=== PATIENT | male | born 1945 | race Caucasian/White ===

== ENCOUNTER 2017-02-26 20:22 | Inpatient (IN) | payer OTHER ==
--- NOTE | ~2017-02-26 | CO ---
Unit #: [id number] #: [id number] Patient: REYNOLD MCMILLAN [id number] [address] [place], [place] [address] [id number] I MR#: [id number] NAME: REYNOLD MCMILLAN. ROOM: 316 Age: 71 Sex: M Admission Date: 02/26/2017 : 1945 Attending Physician: Art Arechiga M.D. Primary Care Physician: Juan Rosario M.D. CONSULTATION REPORT REASON FOR CONSULTATION Renal failure. HISTORY OF PRESENT ILLNESS The patient is a 71-year-old male with significant past medical history of chronic kidney disease and was seen by Dr. Trejo in his office a few years back. Then, he came back to see him again, but somehow the patient was seen in the hospital by another group recently. The patient denies any other complaint at this time. The patient came to the hospital with the complaint of not feeling well and with very high blood pressure and also had seizures. The patient is a prison resident. The patient denies any chest pain. Although, he was on all of his antiseizure medicine. He was on low-dose IV fluids since yesterday and creatinine that was 5.6 at the last month, found to be 6.2 at the time of admission, now improved to 5.7, but sodium was 150 today. The patient is on normal saline at 75 mL an hour. His urine studies were unremarkable, but urinalysis done did show that the patient has significant proteinuria. As per record, the patient also has history of dementia, but when I saw the patient, he was pretty alert and oriented. PAST MEDICAL HISTORY Significant for CVA, epilepsy, hypertension, arthritis, peripheral vascular disease, diabetes mellitus, chronic kidney disease stage 4, at least, and history of sleep apnea. PAST SURGICAL HISTORY Significant for carotid endarterectomy, knee replacement, and inguinal hernia repair. SOCIAL HISTORY The patient is . Currently at the prison. FAMILY HISTORY Significant for coronary artery disease and pulmonary emboli. MEDICATIONS [facility] medicine was reviewed that included omeprazole, MiraLax, simvastatin, isosorbide dinitrate, Keppra, Lexapro, Catapres, acetaminophen, iron supplement. REVIEW OF SYSTEMS Already explained in the history of present illness. All other review of systems is unremarkable. Unit #: [id number] #: [id number] Patient: REYNOLD MCMILLAN PHYSICAL EXAMINATION GENERAL: The patient is an elderly male, not in any acute distress. VITAL SIGNS: Last blood pressure is 160/100, pulse is 85, temperature 98, and respiratory rate is 18. HEAD AND NECK: Pupils are reactive to light. Extraocular movements intact. Mucous membranes are moist. NECK: Supple. No JVD. HEART: Regular rate and rhythm. No murmur. No gallop. CHEST: The patient has bilateral air entry. ABDOMEN: Soft and nontender. No hepatosplenomegaly. EXTREMITIES: Mild edema. Otherwise unremarkable. DIAGNOSTIC STUDIES LABORATORY RESULTS: Labs were reviewed. Sodium 150, potassium 4.5, chloride 113, bicarb 27, BUN 52, creatinine 5.7, calcium 8.5. Hemoglobin is 9.9 and hematocrit 29. ASSESSMENT 1. Acute kidney injury. The patient has significant chronic kidney disease. Creatinine was even 5.6 on 01/19/2017 and 2.2 back in 2013, so renal function is slowly worsening. There is a possibility of some underlying disease and extensive workup that was done in the past including serology, but the patient is diabetic, likely worsening of diabetic nephropathy at this time. Follow up with his renal ultrasound. 2. Chronic kidney disease, stage 3 to 4. 3. Accelerated hypertension. At this time, intravenous fluids will be started. We will control blood pressure aggressively and calcium channel yun will be the drug of choice. No GUTIERREZ or ARB because of the significant chronic kidney disease and we will watch the renal functions closely. 4. Diabetes mellitus type 2 with significant diabetic nephropathy likely. 5. History of seizures. 6. Cerebrovascular accident. PLAN 1. At this time, follow up with the urine studies. 2. Check renal ultrasound. 3. Serology, if the patient is not improving. 4. No need for IV fluid. 5. Control hypertension aggressively to decrease the progression of CKD. Thank you for letting me to participate. Dictated by... Arya Elias M.D. JONNA/cristino TD: 03/01/2017 03:34 JOB #: [id number] Unit #: [id number] #: [id number] Patient: REYNOLD MCMILLAN CONSULTATION REPORT Page 1 of 1 X Arya Elias MD REPORT
--- NOTE | ~2017-02-26 | CO ---
Unit #: [id number] #: [id number] Patient: REYNOLD MCMILLAN [id number] [facility] [address] [facility] [facility]. [place], [place] [address] [id number] I MR#: [id number] NAME: REYNOLD MCMILLAN ROOM: 316 Age: 71 Sex: M Admission Date: 02/26/2017 : 1945 Attending Physician: rAt Arechiga M.D. Primary Care Physician: Juan Rosario M.D. Consultation Date: 03/03/2017 CONSULTATION REPORT REASON FOR CONSULTATION Tunneled dialysis catheter placement. HISTORY OF PRESENT ILLNESS This is a 71-year-old male, currently admitted to the [facility] from a retirement with increasing confusion, mental status changes, and renal failure. This is a patient whom we have previously seen in 2010 as well as 2013 while he was hospitalized at [facility] and we had followed for right carotid stenosis. He has undergone right carotid endarterectomy and right carotid stenting at [facility] in the past. He now has worsening renal failure with elevated BUN, creatinine, and potassium levels. He is in need of hemodialysis and will first require hemodialysis access. He reports that he is right handed. He has no implantable pacemakers or MediPort in his chest. PAST MEDICAL HISTORY Includes; 1. Right carotid endarterectomy. 2. Right carotid stent. 3. Cerebrovascular accident. 4. Dementia. 5. Seizures. 6. Chronic kidney disease. 7. Diabetes. 8. Hypertension. SOCIAL HISTORY The patient resides in a retirement. He denies smoking, alcohol, or drug use. FAMILY HISTORY The patient reports no known family history with either his mother or father. ALLERGIES Zyrtec, Latex. MEDICATIONS Iron polysaccharide 150 mg p.o. daily, Aricept 10 mg two tablets daily, Isordil 30 mg three tablets b.i.d., Lipitor 10 mg daily, Senokot 8.6 mg daily, MiraLAX 17 g powder packet b.i.d., Protonix 40 mg p.o. daily, Lexapro 20 mg one tab daily, 81 mg aspirin daily, Namenda 5 mg b.i.d., Keppra 500 mg one tablet b.i.d., Depakote 250 mg one tablet b.i.d., Unit #: [id number] #: [id number] Patient: REYNOLD MCMILLANvasc 10 mg one tablet daily, chlorthalidone 25 mg daily, Tylenol 500 mg every 6 hours as needed, Catapres 0.1 mg q.4 hours, Apresoline 0.5 mL every 6 hours as needed. REVIEW OF SYSTEMS CONSTITUTIONAL: Negative. HEENT: Negative. RESPIRATORY: Negative. CARDIOVASCULAR: Negative. GASTROINTESTINAL: Positive for stool and urine incontinence. HEME/LYMPH: Negative. ENDOCRINE: Negative. MUSCULOSKELETAL: Negative. INTEGUMENTARY: Negative. NEUROLOGIC: Negative. PSYCHIATRIC: Depression. PHYSICAL EXAMINATION VITAL SIGNS: Temperature 97.5, heart rate 75, respirations 20, blood pressure 150/66. GENERAL APPEARANCE: This is an obese male, in no acute distress. He is a poor historian. Answers some questions appropriately, other times he does not respond. HEENT: Head is normocephalic. Pupils were equal, round, react to light/sluggish. NECK: Supple on auscultation. No bruits bilaterally. He has a well-healed right neck scar. CARDIAC: Regular rate and rhythm. No murmurs noted. LUNGS: Clear with diminished bilateral bases. He is on room air. ABDOMEN: Positive bowel sounds. Abdomen is soft, nontender. No distention noted. No palpable pulsatile masses felt on exam. VASCULAR: Palpable radial pulses bilaterally. Nonpalpable bilateral pedal pulses. SKIN: Warm and dry. He has cream and Kerlix wraps to his bilateral calves. While I did not robe him completely over onto his back, I did like to mention a signage in the room indicating that he has a pressure ulcer to his coccyx. He also has generalized bruising over his upper extremities. NEUROLOGIC: Cranial nerves II through XII grossly intact. He has generalized weakness. His left arm being weaker than the right arm from previous films. PSYCHIATRIC: The patient is oriented to person, place. DIAGNOSTIC STUDIES IMAGING STUDIES: None at this time. LABORATORY RESULTS: Sodium 140, potassium 5.3, chloride 103, CO2 25, BUN 57, creatinine 5.6, glucose 93. Hemoglobin 9.4, hematocrit 27.6, WBC 4.4, platelets 194. INR 1. ASSESSMENT AND PLAN End-stage renal disease with need for hemodialysis access. PLAN Plan will be for tunneled dialysis catheter placement tomorrow with Dr. Riojas. He will be n.p.o. past midnight. Consent will be obtained. Unit #: [id number] #: [id number] Patient: REYNOLD MCMILLAN Dictated by.Faisal Parsons APRN for Amanda Vazquez/cristino TD: 03/03/2017 16:58 JOB #: [id number] CONSULTATION REPORT Page 1 of 1 X X CONSULTATION REPORT
--- NOTE | ~2017-02-26 | EKG ---
PATIENT: REYNOLD MCMILLAN UNIT #: [id number] Ventricular Rate: 65 BPM Atrial Rate: 65 BPM P-R Interval: 146 ms QRS Duration: 86 ms Q-T Interval: 462 ms QTC Calculation(Bezet): 480 ms P Odell: 32 degrees Calculated T Odell: -32 degrees Diagnosis Line: Normal sinus rhythm Diagnosis Line: Nonspecific T wave abnormality Diagnosis Line: Prolonged QT Diagnosis Line: Abnormal ECG Diagnosis Line: When compared with ECG of 14-APR-2015 13:53, Diagnosis Line: Nonspecific T wave abnormality now evident in Diagnosis Line: Inferior leads Diagnosis Line: Nonspecific T wave abnormality now evident in Diagnosis Line: Anterolateral leads Diagnosis Line: Confirmed by GLENDA VELAZQUEZ MD ([id number]) on Diagnosis Line: 02/28/2017 4:54:58 PM INTERPRETING MD: BERNADETTE
--- NOTE | ~2017-02-26 | OR ---
Unit #: [id number] #: [id number] Patient: REYNOLD SHARMA [id number] [address] [place], [place] [address] [id number] I MR#: [id number] NAME: REYNOLD SHARMA ROOM: 316 Date of Procedure: 03/04/2017 Admission Date: 02/26/2017 Surgeon: Trevon Riojas M.D. : 1945 Attending Physician: Art Arechiga M.D. Primary Care Physician: Juan Rosario M.D. OPERATIVE REPORT PREOPERATIVE DIAGNOSIS Chronic kidney disease. POSTOPERATIVE DIAGNOSIS Chronic kidney disease. PROCEDURE PERFORMED Placement of right jugular tunneled dialysis catheter. ANESTHESIA 1% Xylocaine local with MAC. ESTIMATED BLOOD LOSS 10 mL. COMPLICATIONS None. INDICATIONS FOR PROCEDURE Mr. Reynold Sharma is a 71-year-old gentleman with acute on chronic renal failure, who will require hemodialysis. He was taken to the operating room urgently for placement of a tunneled catheter to facilitate his management. DESCRIPTION OF PROCEDURE The patient was placed in supine position. The table was placed in Trendelenburg position. His neck and chest were prepped and sterilely draped. The right internal jugular vein was interrogated with ultrasound and found to be patent. 1% Xylocaine was used to infiltrate the skin and subcutaneous tissue over the right jugular vein. The jugular vein was cannulated under direct ultrasound guidance and a J-wire was threaded through the cannulating needle. The wire was advanced under fluoroscopy into the right atrium. An 11-blade was used to enlarge the puncture site. Dilators were passed over the wire to enlarge the tract. An introducer sheath was placed over the wire. A 27 cm cuff to tip NeXTstep catheter was placed through the introducer sheath. The sheath was split and removed. The table was taken out of Trendelenburg position. The catheter was positioned, so that its tip was in the right atrium. Additional 1% Xylocaine was used to infiltrate the skin and subcutaneous tissue on the anterior chest wall. A separate stab incision was made on the chest wall. A curved metal tunneling device was used to create a Unit #: [id number] #: [id number] Patient: REYNOLD SHARMA subcutaneous tunnel between the chest incision and the neck incision. The outer end of the catheter was brought through the subcutaneous tunnel. The Dacron cuff of the catheter was left within the tunnel. The catheter was cut to an appropriate length. An adapter was placed on the end of the catheter. Blood was able to be easily aspirated and flushed through each lumen of the catheter. The catheter was flushed with heparinized saline and clamped. The right neck incision was closed using 4-0 Vicryl subcuticular sutures. The catheter was sutured to the skin at the exit site with interrupted 3-0 nylon. Sterile dressings were applied. Sponge and needle count were correct. The patient tolerated the procedure well and was taken back to his room in stable condition. Dictated by... Amanda Vazquez/cristino TD: 03/04/2017 15:54 JOB #: [id number] CC: Lucius Trejo MD OPERATIVE REPORT Page 1 of 1 X Trevon Riojas MD X PROCEDURE OPERATIVE NOTE
--- NOTE | ~2017-02-26 | CR72 ---
[facility] A Service of [facility] RADIOLOGY TEXT RESULTS PATIENT: REYNOLD MCMILLAN LOCATION: [facility] 316- : [birth year] UNIT #: [id number] AGE: [address]: Art Arechiga MD SEX: M ORDER DR: [id number] [facility] [address] [facility] [address] [facility]. [place], [place] [address] [id number] MR#: [id number] Acc #: [id number] NAME: REYNOLD MCMILLAN. : 1945 SEX: M STUDY DATE/TIME: 03/04/2017 13:34 [facility] ROOM: [facility] STUDY DESCRIPTION: CR Chest Single View Portable Attending Physician: Art Arechiga M.D. Ordering Physician: Art Arechiga M.D. Primary Care Physician: Juan Rosario M.D. MEDICAL IMAGING REPORT This report is preliminary unless electronic signature is present EXAM Portable chest INDICATIONS Placement of a tunneled dialysis catheter COMPARISON 02/26/2017 FINDINGS Interval placement of right IJ tunnel dialysis catheter. Tip is in the region of the lower SVC. No pneumothorax. No other change. IMPRESSION Right IJ tunneled dialysis catheter tip in the region of the lower SVC. No evidence of pneumothorax. Dictated by... Vinnie Henley M.D. THIS IS AN ELECTRONICALLY VERIFIED REPORT Vinnie Henley M.D. at 03/08/2017 7:21 AM ARS/to TD: 03/04/2017 17:27 JOB #: [id number] MEDICAL IMAGING REPORT Page 1 of 1 COPY
--- NOTE | ~2017-02-26 | FU ---
[facility] Nutrition Therapy DATE: 03/08/17 Patient: REYNOLD MCMILLAN Physician: FOUZIA Address: [address] [place] [address] DRIVE Room/Bed: [address] [place] [address], Zip: [place] [address] Admit Date: 02/26/17 Date of : [birth year] Height: Weight: 166 75.6 NUTRITION MONITORING/FOLLOW-UP: Reason: Follow-up Admitting dx: Pt is a 71 y/o male admitted with AMS (from [facility]) Anthropometrics: HT: 65" admit WT: 80.1kg; current weight: 75.6kg BMI: 27.6-29.4 Labs: Creat: 3.3; GFR: 18.1, K+ WNL (since started on dialysis) Meds: Psych meds, Miralax, Senokot, PPI I&O's: BM on 03/07 Skin: IGOR feet dry skin, red coccyx (?stage II P/U), petechia BUE Estimated Nutrition Needs: Increased Assessment: Chart reviewed, events noted. Pt was asleep at time of visit. Per RN, pt is a feeder and eating 100% of meals. Pt is receiving HD, and will need outpatient HD. Pt is on a HH diet with a K+ restriction. Pt's K+ has been WNL since starting HD. Previous stage II p/u is now noted as redness. RD will continue to follow per protocol. Dx: Icreased nutritient needs r/t wound healing requirements AEB stage II pressure ulcer. - ACTIVE Intervention: See recs below Monitoring, Evaluation and Goals: 1. PO intake >50% of meals. - MET 2. Promote wound healing. - IN PROGRESS/MET (stage II pressure ulcer?) Recommendations: 1. Consider removing K+ restriction from diet as pt's labs have been WNL since starting HD. 2. Wound care prn. 3. Consider obtaining updated A1C and lipid panel. Status: Mild nutrition risk RD will follow [facility] Nutrition Therapy DATE: 03/08/17 Patient: REYNOLD MCMILLAN Physician: FOUZIA Address: [address] Room/Bed: [address] [place] [address], Zip: [place] [address] Admit Date: 02/26/17 Date of : [birth year] Height: Weight: 166 75.6 Respectfully, Krystina Navarro, Retail Cashier Sarah Long, RD, LD Food and Nutritional Services [facility] cc: client file
--- NOTE | ~2017-02-26 | A ---
[facility] Nutrition Therapy DATE: 03/01/17 Patient: REYNOLD MCMILLAN Physician: FOUZIA Address: [address] Room/Bed: [address] [place] [address], Zip: [place] [address] Admit Date: 02/26/17 Date of : [birth year] Height: Weight: 176 80.1 NUTRITIONAL ASSESSMENT: REASON: 1 point malnutrition risk screen re: pressure ulcer Admitting dx: 71 y/o male admitted with AMS from [facility] PMH: CVA, HTN, HLD, DM, ANTHONY on CKD stage III, dementia, seizure disorder, anemia of chronic disease, hypernatremia Anthropometrics: HT: 65", Wt: 76.7 kg, BMI: 29.4 (overweight) Labs: BUN 59, creat 5.5, GFR 9.7, A1C 4.5 (04/15/15), glucose/lytes WNL Meds: Senokot, miralax, PPI I/O & Bowel function: BM 02/28 Skin Integrity: stage II pressure ulcer L buttock Estimated Nutrition Needs: Increased Assessment: Chart reviewed, events noted. See admitting dx and PMH as stated above. Pt scored 1 point on the malnutrition risk screen for a stage II ulcer on his L buttock, which is being treated. He is on a healthy heart diet (per [employer] screen) with no chewing/swallowing difficulties (has hx of CVA). No recent weight loss. The patient himself is not appropriate for RD interivew- he is A/O x 1 with confusion. From what I can tell he has been eating well. He is working with PT at this time. Plan to return to [place]. See RD recs below. Dx: Increased nutrient needs r/t wound healing requirements AEB stage II pressure ulcer. Intervention: See recs below Monitoring, Evaluation and Goals: 1. PO intake > 50% of meals. 2. Promote wound healing. Monitor: per protocol, criteria to determine if above goals met Recommendations: 1. Agree with healthy heart diet unless PO intake is inadequate. If PO intake is < 50-75% [facility] Nutrition Therapy DATE: 03/01/17 Patient: REYNOLD MCMILLAN Physician: FOUZAI Address: [address] Room/Bed: [address] [place] [address], Zip: [place] [address] Admit Date: 02/26/17 Date of : [birth year] Height: Weight: 176 80.1 of meals please change diet to regular and order Ensure Enlive shakes BID. Pt has increased protein needs. 2. Wound care prn. 3. Suggest checking new A1C and lipid panel. RD will follow Mild nutrition risk Respectfully, Sarah Long, RAMYA, LD Food and Nutritional Services [facility] cc: client file
--- NOTE | ~2017-02-26 | CT71 ---
[facility] A Service of [facility] RADIOLOGY TEXT RESULTS PATIENT: REYNOLD MCMILLAN LOCATION: [facility] : [birth year] UNIT #: [id number] AGE: [address]: Art Arechiga MD SEX: M ORDER DR: [id number] [facility] [address] [facility]. [place], [place] [address] [id number] I MR#: [id number] Acc #: [id number] NAME: REYNOLD MCMILLAN. : 1945 SEX: M STUDY DATE/TIME: 02/26/2017 23:29 UNIT: [facility] PCU ROOM: [address] [place] [address] DESCRIPTION: CT Head Wo Contrast Attending Physician: Art Arechiga M.D. Ordering Physician: Sarthak Martinez M.D. Primary Care Physician: Juan Rosario M.D. MEDICAL IMAGING REPORT This report is preliminary unless electronic signature is present EXAM CT brain without contrast HISTORY Headache and confusion for [address] exam was performed with one or more of the following radiation dose reduction techniques: automatic exposure control, adjustment of mA and/or kV according to patient size, and iterative reconstruction. FINDINGS CT brain without contrast demonstrates moderately extensive chronic ischemic changes in the periventricular white matter bilaterally. Small chronic infarct in the superior right frontal lobe. Chronic lacunar infarct in the left thalamus. Moderate generalized ventricular dilatation. No intracranial hemorrhage, mass or edema. No midline shift or extraaxial fluid collection. IMPRESSION 1. No acute findings. 2. Moderately extensive chronic ischemic changes in the deep white matter bilaterally and chronic infarct in the superior right frontal lobe and small chronic lacunar infarct in the left thalamus. 3. Generalized cerebral cortical atrophy and ventricular dilatation. Dictated by... Oz Killian M.D. THIS IS AN ELECTRONICALLY VERIFIED REPORT Oz Killian M.D. at 02/28/2017 4:45 AM DFL/ljd [facility] A Service of [facility] RADIOLOGY TEXT RESULTS PATIENT: REYNOLD MCMILLAN LOCATION: [facility] : 47 UNIT #: [id number] AGE: [address]: Art Arechiga MD SEX: M ORDER DR: TD: 02/27/2017 22:43 JOB #: [id number] MEDICAL IMAGING REPORT Page 1 of 1 COPY
--- NOTE | ~2017-02-26 | DS ---
Unit #: [id number] #: [id number] Patient: REYNOLD MCMILLAN [id number] [address] [address] [id number] I MR#: [id number] NAME: REYNOLD MCMILLAN. ROOM: 316 Age: 71 Sex: M Admission Date: 02/26/2017 : 1945 Discharge Date: 03/09/2017 Attending Physician: Art Arechiga M.D. Primary Care Physician: Juan Rosario M.D. DISCHARGE SUMMARY PLEASE NOTE The patient has had a lengthy stay. CONSULTATION DURING HOSPITALIZATION Dr. Riojas from vascular surgery; Dr. Arya Elias from renal services. PROCEDURE PERFORMED DURING HOSPITALIZATION Placement of the right jugular tunnel to dialysis catheter by Dr. Riojas on 03/04/2017. LAB WORKUP ON DISCHARGE Sodium 135, potassium 3.6, chloride 99, BUN 20, creatinine 3. 3, calcium 8.5. CBC shows WBC 6.5, hemoglobin 8.8, hematocrit 25.5, platelet count of 154. Hepatitis B surface antigen is nonreactive. Hepatitis C is nonreactive. Hepatitis B surface antibody is less than 5. Blood cultures are no growth. Ferritin 1,027. Significant radiological studies done during hospitalization was CT scan of the head without contrast because of confusion. It showed no acute findings. Moderately extensive chronic ischemia changes in the deep white matter bilaterally and chronic infarct in the superior right frontal lobe and small chronic lacunar infarct in the left thalamus. Ultrasound of kidneys were done which shows no hydronephrosis or definite renal lesions. Low normal size of the kidneys with questionable mild cortical thinning. Chest x-ray shows right IJ tunnel dialysis catheter. No evidence of pneumothorax. ADMITTING PHYSICIAN Dr. Art Arechiga DISCHARGING PHYSICIAN Dr. Denton [facility] COURSE 71-year-old gentleman who is a resident of [facility], was transferred because of altered mental status and increasing confusion. The patient has a chronic history of CVA, dementia, and was not able to provide any history. The patient was found to have BUN of 52 and creatinine of 5.7, along with a sodium level 150. The patient was Unit #: [id number] #: [id number] Patient: REYNOLD MCMILLAN admitted to telemetry unit with the diagnosis of acute kidney injury and chronic disease. Dr. Elias was consulted and it was decided to go ahead with hemodialysis. Dr. Riojas was consulted. Patient had a catheter placed and hemodialysis has been started. Patient will be getting today, one hemodialysis before discharge. Patient is stable. At this time is being discharge home. I have discussed with career development coordinator/teacher, hemodialysis as outpatient has been already arranged. DISCHARGE DIAGNOSES 1. End stage renal disease on hemodialysis. 2. Hypernatremia, which is resolved. 3. Seizure disorder. 4. Diabetes mellitus type 2. 5. Dementia. 6. History of CVA. 7. Hypertension. 8. Hyperlipidemia. 9. Anemia of chronic disease. 10. Coronary artery disease, possible (1) are not known. 11. History of diverticulosis. 12. History of peripheral vascular disease. DISCHARGE MEDICATIONS 1. Niferex 150 mg daily. 2. Aspirin 81 mg q. 24 hours. 3. Hydrocodone 5/325 one tablet q.6 p.r.n. 4. Omeprazole 20 mg daily. 5. Isosorbide 30 mg b.i.d. 6. Hydralazine 50 mg b.i.d. 7. Catapres 0.1 mg q.4 p.r.n. for systolic blood pressure above 170 and diastolic above 100. 8. Simvastatin 20 mg daily. 9. Procrit with hemodialysis. 10. Aricept 10 mg daily. 11. Namenda 5 mg twice a day. 12. Senokot 8.6 mg daily. 13. MiraLAX 17 g p.o. twice a day. 14. Amlodipine 10 mg daily. 15. Lexapro 20 mg daily. 16. Keppra 500 mg p.o. twice a day. 17. Depakote 250 mg twice a day. 18. Tylenol 500 mg q.6 p.r.n. for pain. PHYSICAL EXAMINATION VITAL SIGNS ON DISCHARGE: Blood pressure 127/60, respiratory rate 18, pulse is 79, temperature 97.6, oxygen saturation is 100%. CHEST: Fair air entry decreased at the basis. CVS: S1 and S2 positive. Regular rhythm. ABDOMEN: Soft, edema is positive. DISCHARGE INSTRUCTION 1. Patient is being discharged to [facility] in stable condition. 2. Medication is per med rec. 3. Continue hemodialysis as an outpatient per renal. 4. Accu-Chek a.c. and h.s. 5. Aspiration precaution. 6. Please note, prescription for hydrocodone has been written. Unit #: [id number] #: [id number] Patient: DEYANIRAREYNOLD Amira Dictated by..Amanda Ellis/flaco TD: 03/09/2017 11:40 JOB #: [id number] DISCHARGE SUMMARY Page 1 of 1 X Radha Louis MD X DISCHARGE SUMMARY
--- NOTE | ~2017-02-26 | HP ---
Unit #: [id number] #: [id number] Patient: REYNOLD SHARMA [id number] [address] [address] [id number] I MR#: [id number] NAME: REYNOLD SHARMA ROOM: 316 Age: 71 Sex: M Admission Date: 02/26/2017 : 1945 Attending Physician: Art Arechiga M.D. Primary Care Physician: Juan Rosario M.D. HISTORY AND PHYSICAL ADMISSION DIAGNOSES 1. Acute kidney injury on chronic kidney disease, stage 3. 2. Hypernatremia. 3. History of seizure disorder. 4. Diabetes. 5. Dementia. 6. History of CVA. 7. Hypertension. 8. Dyslipidemia. 9. Anemia of chronic disease. HISTORY OF PRESENT ILLNESS Mr. Reynold Sharma is a 71-year-old gentleman, resident of [facility], cared by Dr. Preston Escobar, who was transferred of [facility] secondary to altered mental status and increasing confusion. Patient is the one with history of CVA, dementia, unable to provide any history. Does not remember why was she transferred to hospital. Initial evaluation in the ER was significant with BUN and creatinine of 52 and 5.7 along with the sodium levels of 150. Patient currently is status post evaluation per nephrology service and being admitted. He looks comfortable without any distress but, again, unable to obtain any review of systems secondary to patient's inability of recollection of events that took place prior to this transfer to hospital. He currently denies any active problems. Denies any pain anywhere, denies any chest pain, denies any shortness of air, headache or dizziness. Denies any fever, chills, nausea, vomiting or diarrhea but, again, patient is the one with the history of dementia and, therefore, I am not reliably obtaining any review of systems. PAST MEDICAL HISTORY Significant for: 1. History of dementia. 2. Seizure disorder. 3. CVA. 4. CKD3. 5. Hypertension. 6. Diabetes. 7. Dyslipidemia. 8. Osteoarthritis. 9. Diverticular disease. 10. Coronary artery disease. 11. Obstructive sleep apnea. PAST SURGICAL HISTORY Significant for: Unit #: [id number] #: [id number] Patient: REYNOLD SHARMA 1. Right carotid endarterectomy. 2. Right total knee replacement. 3. Bilateral inguinal hernia repair. SOCIAL HISTORY No current history of tobacco, alcohol or illicit drugs. FAMILY HISTORY Unremarkable. PHYSICAL EXAM The patient is a 71-year-old gentleman in no acute distress. VITAL SIGNS: BP 191/92, heart rate 61, respirations 18, temperature 98.1. HEENT: Head is atraumatic. Pupils equal, round and reactive to light. Extraocular muscles intact. Oropharynx clear. NECK: Supple. No masses, no JVD or bruits. CHEST: Diminished at the bases. CARDIOVASCULAR: S1, S2. No murmurs. ABDOMEN: Obese, soft, nontender, nondistended. EXTREMITIES: Lower extremities without any cyanosis, clubbing or edema. NEUROLOGICAL EXAM: Limited secondary to patient's inability to full cooperation with the physical exam. However, he moves all four extremities with decreased strength on the left, otherwise no significant focal deficits on a limited exam again. LABS AND DIAGNOSTICS As above in HPI. BUN and creatinine 52 and 5.7, white count 8.0, H and H 9.9 and 29.2. Coagulation panel unremarkable. ASSESSMENT AND PLAN 1. Acute kidney injury on chronic kidney disease with hypernatremia, status post nephrology evaluation. Continue gentle hydration. Follow up on the renal ultrasound and rest of the workup per nephrology. 2. History of seizure disorder, continue home meds. 3. History of CVA, continue home meds. 4. Dementia, continue home meds. 5. Diabetes, again, continue home medications. 6. Hypertension. Nephrology added Norvasc. I will also add the p.r.n. hydralazine. 7. Anemia of chronic disease, currently stable. Monitor H and H. 8. GI and DVT prophylaxis. Continue SCDs and Protonix. Dictated by Art Arechiga M.D. OC/df TD: 02/28/2017 05:26 JOB #: [id number] Unit #: [id number] #: [id number] Patient: REYNOLD SHARMA HISTORY AND PHYSICAL Page 1 of 1 X Art Arechiga MD X HISTORY AND PHYSICAL
--- NOTE | ~2017-02-26 | US77 ---
[facility] A Service of [facility] RADIOLOGY TEXT RESULTS PATIENT: REYNOLD MCMILLAN LOCATION: [facility] 316-01 : [birth year] UNIT #: [id number] AGE: [address]: Art Arechiga MD SEX: M ORDER DR: [id number] [facility] [address] [facility]. [place], [place] [address] [id number] I MR#: [id number] Acc #: [id number] NAME: REYNOLD MCMILLAN. : 1945 SEX: M STUDY DATE/TIME: 02/27/2017 12:01 UNIT: [address] ROOM: [facility] STUDY DESCRIPTION: US Kidney Bilateral Complete Attending Physician: Art Arechiga M.D. Ordering Physician: Arya Elias M.D. Primary Care Physician: Juan Rosario M.D. MEDICAL IMAGING REPORT This report is preliminary unless electronic signature is present EXAM Complete bilateral renal ultrasound COMPARISON April 16, [address] abdomen and pelvis dated June 27, 2014. INDICATIONS 71-year-old male with acute renal insufficiency. Estimated GFR of 9.3 with creatinine of 5.7 and BUN of 52. FINDINGS Right kidney measures 9.9 cm in length and demonstrates cortical thinning. There is no right hydronephrosis. No definite right renal lesion. Urinary bladder is unremarkable. Left kidney measures approximately 9.4 cm with suggestion of cortical thinning, as well. No left hydronephrosis. No definite left renal lesion is seen. IMPRESSION 1. No hydronephrosis or definite renal lesion. 2. Low normal size of the kidneys, with questionable mild cortical thinning. Dictated by... Brayan Fuentes M.D. THIS IS AN ELECTRONICALLY VERIFIED REPORT Brayan Fuentes M.D. at 03/03/2017 11:59 AM JESSICA/sierra TD: 02/28/2017 08:11 JOB #: [id number] [facility] A Service of [facility] RADIOLOGY TEXT RESULTS PATIENT: REYNOLD MCMILLAN LOCATION: [facility] 316-01 : [birth year] UNIT #: [id number] AGE: [address]: Art Arechiga MD SEX: M ORDER DR: MEDICAL IMAGING REPORT Page 1 of 1 COPY
--- NOTE | ~2017-02-26 | CR72 ---
[facility] A Service of [facility] RADIOLOGY TEXT RESULTS PATIENT: REYNOLD MCMILLAN LOCATION: [facility] 316-01 : [birth year] UNIT #: [id number] AGE: [address]: Art Arechiga MD SEX: M ORDER DR: [id number] [facility] [address] [facility] [facility] [place], [place] [address] [id number] I MR#: [id number] Acc #: [id number] NAME: REYNOLD MCMILLAN. : 1945 SEX: M STUDY DATE/TIME: 02/26/2017 21:28 UNIT: [address] ROOM: [facility] STUDY DESCRIPTION: CR Chest Single View Portable Attending Physician: Art Arechiga M.D. Ordering Physician: Sarthak Martinez M.D. Primary Care Physician: Juan Rosario M.D. MEDICAL IMAGING REPORT This report is preliminary unless electronic signature is present EXAM Portable chest HISTORY Shortness of air and congestion today. FINDINGS Cardiac size and pulmonary vascularity are within normal limits allowing for shallow inspiration. No airspace infiltrates or effusions. Remainder of the chest is unremarkable. IMPRESSION No acute findings and no active disease. Dictated by... Oz Killian M.D. THIS IS AN ELECTRONICALLY VERIFIED REPORT Oz Killian M.D. at 02/28/2017 4:42 AM SARAH/nori TD: 02/27/2017 21:36 JOB #: [id number] MEDICAL IMAGING REPORT Page 1 of 1 COPY
[~2017-02-26 20:22] MED LIST: ACETAMINOPHEN PO; ALPRAZOLAM PO; ANTIVERT PO; APRESOLINE PO; ASPIRIN EC81 M1 PO; ASPIRIN ENTERI325 M1 PO; ASPIRIN PO; ASPIRIN325 M1 PO; ASPIRIN81 M1 PO; ASPIRIN81 M2 PO; AUGMENTIN875 MG PO; B-100 COMPLEX100 MG PO; BYSTOLIC5 MG PO; CATAPRES0.1 MG PO; CEFADROXIL PO; CELEBREX PO; CLOPIDOGREL75 MG PO; COLACE PO; COUMADIN PO; COUMADIN2.5 MG PO; CYANOCOBALAM1000 MCG PO; DEPAKOTE PO; DILANTIN KAPSE100 MG PO; DILANTIN PO; DIVALPROEX SOD500 MG PO; DONEPEZIL HCL10 MG PO; FERRO-TIME325 MG PO; FISH OIL 1,0001 CAP PO; FISH OIL 1,001000 M1 PO; FISH OIL 1,001000 MG PO; GLUCOTROL PO; GLUCOTROL10 MG PO; HYDRALAZINE HCL50 MG PO; IBUPROFEN800 MG PO; IMDUR-ER60 M1 PO; ISOSORBIDE DINI30 MG PO; KEPPRA500 M1 PO; KEPPRA500 M2 PO; KEPPRA500 MG PO; LANTUS100 U/ML; LANTUS100 U/ML SUBQ; LASIX20 MG PO; LEVEMIR SUBQ; LEXAPRO PO; LEXAPRO20 MG PO; LIPITOR PO; LISINOPRIL PO; LISINOPRIL5 MG PO; LOPRESSOR PO; LORTAB 7.5-5001 TAB PO; METFORMIN PO; MIRALAX17 GM PO; NAMENDA5 MG PO; NAPROXEN PO; NASAL SPRAY30 M1 NS; NITROSTAT0.4 MG SL; NOVOLIN 70/30 V10 M1 SQ; NOVOLOG100 U/ML SUBQ; OMEPRAZOLE20 M2 PO; OXYCODONE-APAP1 CA2 PO; PERCOCET5/325 PO; PHENERGAN25 M1 PO; PLAVIX PO; PROPRANOLOL HCL80 M1 PO; PROTONIX PO; SENNA LAXATIVE8.6 M1 PO; SIMVASTATIN20 MG PO; TOPAMAX PO; TOPAMAX200 MG PO; VIMPAT50 MG PO; VITAMIN B-121000 MCG PO; XALATAN OP; ZESTRIL10 M2 PO; ZITHROMAX PO; ZOFRAN ODT4 MG PO; ZOFRAN8 MG PO; ZYRTEC PO; [UNRECOGNIZED DRUG - CODE] PO; [UNRECOGNIZED DRUG - OTHER]; [UNRECOGNIZED DRUG - OTHER] PO
[2017-02-26 21:34] LABS: BASOPHIL% 0.4 % (0-2.5); EOSINOPHIL# 0.1 X10e3 (0-0.7); EOSINOPHIL% 0.7 % (0.0-7.0); HEMATOCRIT 31.6 % (38.0-50.0); HEMOGLOBIN 10.5 gm/dL (13.0-16.0); LYMPHOCYTE# 0.4 X10e3 (1.0-3.5); LYMPHOCYTE% 4.6 % (17.0-45.0); MEAN CELL VOLUME 97.1 FL (83-96); MEAN CORPUSCULAR HEMOGLOBIN 32.3 PG (28-34); MEAN CORPUSCULAR HGB CONC 33.2 g/dL (30-36); MEAN PLATELET VOLUME 8.9 FL (6.5-11.5); MONOCYTE# 0.5 X10e3 (0-1.0); MONOCYTE% 5.7 % (3.0-12.0); NEUTROPHIL# 7.6 X10e3 (1.5-7.1); NEUTROPHIL% 88.6 % (40-75); PLATELET COUNT 163 X10e3 (140-420); RED BLOOD COUNT 3.25 X10e (3.90-5.60); WHITE BLOOD COUNT 8.6 X10e3 (4.0-10.5)
[2017-02-26 21:35] LABS: POC - CKMB 2.9 ng/mL (0.0-7.9); POC - TROPONIN <0.05 ng/mL (<=0.05)
[2017-02-26 21:37] LABS: DIFF IND NO
[2017-02-26 21:50] LABS: PROTHROMBIN TIME (PATIENT) 11.2 SECONDS (10.0-11.7)
[2017-02-26 21:57] LABS: ALBUMIN SERUM 3.3 g/dL (3.5-5.0); BILIRUBIN, DIRECT 0.1 mg/dL (0.0-0.2); BILIRUBIN,INDIRECT 0.8 mg/dL (0.0-0.9); BILIRUBIN,TOTAL 0.9 mg/dL (0.2-2.0); BUN/CREATININE RATIO 9.03; CALCIUM SERUM 8.5 mg/dL (8.4-10.2); CREATININE SERUM 6.2 mg/dL (0.6-1.4); GLOM FILT RATE Estimated 8.4 mL/min (>60); POTASSIUM 4.9 mmol/L (3.5-5.1)
[2017-02-26 22:46] LABS: URINE SOURCE CATH
[2017-02-26 22:58] LABS: URINE APPEARANCE TURBID; URINE BILIRUBIN NEG (NEG); URINE BLOOD NEG (NEG); URINE COLOR YELLOW; URINE GLUCOSE NEG (NEG); URINE KETONE TRACE (NEG); URINE LEUKOCYTE ESTERASE TRACE (NEG); URINE NITRATE NEG (NEG); URINE PROTEIN 3+ (NEG); URINE SPECIFIC GRAVITY 1.028 (1.003-1.035); URINE UROBILINOGEN 0.2 MG/DL (NEG)
[2017-02-26 23:04] LABS: URBCS1 AUWI 0-2 /[HPF] (0-2); URINE BACTERIA AUWI NEG (NEGATIVE)
[2017-02-26 23:21] LABS: U HYALINE CASTS AUWI 0-2 /[LPF]
[2017-02-26 23:23] LABS: CULTURE INDICATED? NO
[2017-02-26 23:24] LABS: URINE TRANSITIONAL EPI CELLS FEW /[HPF]
[2017-02-26 23:25] LABS: URINE SQUAMOUS EPITHELIAL CELL FEW /[HPF]
[2017-02-26 23:26] LABS: URINE AMORPHOUS SEDIMENT AMORP URATES
[2017-02-27] MEDS ORDERED: ACETAMINOPHEN PO (03:49)
[2017-02-27] MEDS ORDERED: DEPAKOTE (UD)250 M1 PO (03:53)
[2017-02-27] MEDS ORDERED: FERREX 150 PLU1 EACH PO (03:56)
[2017-02-27 07:15] LABS: HEMATOCRIT 29.2 % (38.0-50.0); HEMOGLOBIN 9.9 gm/dL (13.0-16.0); MEAN CELL VOLUME 96.4 FL (83-96); MEAN CORPUSCULAR HEMOGLOBIN 32.7 PG (28-34); MEAN CORPUSCULAR HGB CONC 33.9 g/dL (30-36); MEAN PLATELET VOLUME 8.6 FL (6.5-11.5); RED BLOOD COUNT 3.03 X10e (3.90-5.60); RED CELL DISTRIBUTION WIDTH 14.2 % (11.0-15.5)
[2017-02-27 07:52] LABS: BUN/CREATININE RATIO 9.12; CALCIUM SERUM 8.5 mg/dL (8.4-10.2); CREATININE SERUM 5.7 mg/dL (0.6-1.4); GLOM FILT RATE Estimated 9.3 mL/min (>60); POTASSIUM 4.5 mmol/L (3.5-5.1)
[2017-02-28 05:12] LABS: HEMATOCRIT 29.9 % (38.0-50.0); HEMOGLOBIN 10.1 gm/dL (13.0-16.0); MEAN CELL VOLUME 97.7 FL (83-96); MEAN CORPUSCULAR HEMOGLOBIN 32.9 PG (28-34); MEAN CORPUSCULAR HGB CONC 33.7 g/dL (30-36); MEAN PLATELET VOLUME 8.9 FL (6.5-11.5); RED BLOOD COUNT 3.06 X10e (3.90-5.60); RED CELL DISTRIBUTION WIDTH 14.3 % (11.0-15.5); WHITE BLOOD COUNT 5.3 X10e3 (4.0-10.5)
[2017-02-28 05:57] LABS: ALBUMIN SERUM 3.2 g/dL (3.5-5.0); BILIRUBIN,TOTAL 0.9 mg/dL (0.2-2.0); BUN/CREATININE RATIO 9.65; CALCIUM SERUM 8.7 mg/dL (8.4-10.2); CREATININE SERUM 5.8 mg/dL (0.6-1.4); GLOM FILT RATE Estimated 9.1 mL/min (>60); MAGNESIUM 2.1 mg/dL (1.6-3.0); PHOSPHOROUS 3.9 mg/dL (2.5-4.6); POTASSIUM 4.5 mmol/L (3.5-5.1); PROTEIN TOTAL SERUM 5.9 g/dL (6.0-8.3)
[2017-03-01 07:21] LABS: HEMATOCRIT 25.9 % (38.0-50.0); HEMOGLOBIN 8.8 gm/dL (13.0-16.0); MEAN CORPUSCULAR HEMOGLOBIN 32.6 PG (28-34); MEAN CORPUSCULAR HGB CONC 33.9 g/dL (30-36); MEAN PLATELET VOLUME 8.5 FL (6.5-11.5); RED BLOOD COUNT 2.7 X10e (3.90-5.60); RED CELL DISTRIBUTION WIDTH 14.1 % (11.0-15.5)
[2017-03-01 07:45] LABS: BUN/CREATININE RATIO 10.72; CALCIUM SERUM 8.1 mg/dL (8.4-10.2); CREATININE SERUM 5.5 mg/dL (0.6-1.4); GLOM FILT RATE Estimated 9.7 mL/min (>60); POTASSIUM 4.7 mmol/L (3.5-5.1)
[2017-03-02 05:31] LABS: BUN/CREATININE RATIO 10.92; CALCIUM SERUM 8.4 mg/dL (8.4-10.2); CREATININE SERUM 5.4 mg/dL (0.6-1.4)
[2017-03-02 05:40] LABS: POTASSIUM 5.5 mmol/L (3.5-5.1)
[2017-03-02 16:10] LABS: BUN/CREATININE RATIO 10.17; CALCIUM SERUM 8.5 mg/dL (8.4-10.2); CREATININE SERUM 5.6 mg/dL (0.6-1.4); GLOM FILT RATE Estimated 9.5 mL/min (>60); POTASSIUM 5.3 mmol/L (3.5-5.1)
[2017-03-02 17:29] LABS: CREATININE,RANDOM URINE 62 mg/dL
[2017-03-02 17:30] LABS: TOTAL PROTEIN,RANDOM URINE 192 mg/dl (<10)
[2017-03-03 05:35] LABS: HEMATOCRIT 27.6 % (38.0-50.0); HEMOGLOBIN 9.4 gm/dL (13.0-16.0); MEAN CELL VOLUME 95.3 FL (83-96); MEAN CORPUSCULAR HEMOGLOBIN 32.5 PG (28-34); MEAN CORPUSCULAR HGB CONC 34.1 g/dL (30-36); MEAN PLATELET VOLUME 8.2 FL (6.5-11.5); RED BLOOD COUNT 2.9 X10e (3.90-5.60); RED CELL DISTRIBUTION WIDTH 13.8 % (11.0-15.5); WHITE BLOOD COUNT 4.4 X10e3 (4.0-10.5)
[2017-03-03 06:23] LABS: BUN/CREATININE RATIO 10.17; CALCIUM SERUM 8.5 mg/dL (8.4-10.2); CREATININE SERUM 5.6 mg/dL (0.6-1.4); GLOM FILT RATE Estimated 9.5 mL/min (>60); POTASSIUM 5.3 mmol/L (3.5-5.1)
[2017-03-03 20:29] LABS: URINE CREATININE 54.3 mg/dL
[2017-03-03 20:30] LABS: BODY SURFACE AREA 1.88
[2017-03-04 08:43] LABS: HEMATOCRIT 28.1 % (38.0-50.0); HEMOGLOBIN 9.6 gm/dL (13.0-16.0); MEAN CELL VOLUME 95.5 FL (83-96); MEAN CORPUSCULAR HEMOGLOBIN 32.8 PG (28-34); MEAN CORPUSCULAR HGB CONC 34.3 g/dL (30-36); MEAN PLATELET VOLUME 8.2 FL (6.5-11.5); RED BLOOD COUNT 2.94 X10e (3.90-5.60); RED CELL DISTRIBUTION WIDTH 13.9 % (11.0-15.5); WHITE BLOOD COUNT 4.7 X10e3 (4.0-10.5)
[2017-03-04 08:58] LABS: PROTHROMBIN TIME (PATIENT) 10.6 SECONDS (10.0-11.7)
[2017-03-04 09:06] LABS: BUN/CREATININE RATIO 10.72; CALCIUM SERUM 8.4 mg/dL (8.4-10.2); CREATININE SERUM 5.5 mg/dL (0.6-1.4); GLOM FILT RATE Estimated 9.7 mL/min (>60); POTASSIUM 5.2 mmol/L (3.5-5.1)
[2017-03-05 09:00] LABS: HEMATOCRIT 30.6 % (38.0-50.0); HEMOGLOBIN 10.5 gm/dL (13.0-16.0); MEAN CELL VOLUME 95.3 FL (83-96); MEAN CORPUSCULAR HEMOGLOBIN 32.6 PG (28-34); MEAN CORPUSCULAR HGB CONC 34.2 g/dL (30-36); MEAN PLATELET VOLUME 8.3 FL (6.5-11.5); RED BLOOD COUNT 3.21 X10e (3.90-5.60); RED CELL DISTRIBUTION WIDTH 13.8 % (11.0-15.5); WHITE BLOOD COUNT 5.9 X10e3 (4.0-10.5)
[2017-03-05 09:48] LABS: BUN/CREATININE RATIO 9.06; CALCIUM SERUM 8.6 mg/dL (8.4-10.2); CREATININE SERUM 4.3 mg/dL (0.6-1.4); GLOM FILT RATE Estimated 13.1 mL/min (>60); POTASSIUM 4.9 mmol/L (3.5-5.1)
[2017-03-05 15:21] LABS: PHOSPHOROUS 5.4 mg/dL (2.5-4.6)
[2017-03-05 16:19] LABS: %MB 10.2 % (0.0-4.0); MB 9.1 ng/ml
[2017-03-06 04:58] LABS: HEMOGLOBIN 10.2 gm/dL (13.0-16.0); MEAN CELL VOLUME 95.6 FL (83-96); MEAN CORPUSCULAR HEMOGLOBIN 32.6 PG (28-34); MEAN CORPUSCULAR HGB CONC 34.1 g/dL (30-36); MEAN PLATELET VOLUME 8.7 FL (6.5-11.5); RED BLOOD COUNT 3.14 X10e (3.90-5.60); RED CELL DISTRIBUTION WIDTH 13.6 % (11.0-15.5); WHITE BLOOD COUNT 7.6 X10e3 (4.0-10.5)
[2017-03-06 06:12] LABS: BUN/CREATININE RATIO 7.77; CALCIUM SERUM 8.8 mg/dL (8.4-10.2); CREATININE SERUM 3.6 mg/dL (0.6-1.4); GLOM FILT RATE Estimated 16.2 mL/min (>60); POTASSIUM 4.3 mmol/L (3.5-5.1)
[2017-03-06 11:39] LABS: HEP B SURFACE AG Nonreactive (Nonreactive); HEP C AB (HEPPAN) Nonreactive (Nonreactive); HEP C AB SIGNAL TO CUTOFF 0.01 ratio (<1.00); HEPATITIS B SURFACE ANTIBODY <5 mIU/mL (>=10)
[2017-03-07 02:09] LABS: URINE APPEARANCE TURBID; URINE BILIRUBIN NEG (NEG); URINE BLOOD NEG (NEG); URINE COLOR YELLOW; URINE GLUCOSE NEG (NEG); URINE KETONE TRACE (NEG); URINE LEUKOCYTE ESTERASE 2+ (NEG); URINE NITRATE NEG (NEG); URINE PROTEIN 3+ (NEG); URINE SPECIFIC GRAVITY 1.021 (1.003-1.035); URINE UROBILINOGEN 0.2 MG/DL (NEG)
[2017-03-07 02:12] LABS: URINE BACTERIA AUWI NEG (NEGATIVE); URINE SQUAMOUS EPITHELIAL CELL MOD /[HPF]; UWBCS1 AUWI 100-200 (0-5)
[2017-03-07 02:20] LABS: URINE GRANULAR CAST 0-2 /[HPF]
[2017-03-08 06:27] LABS: HEMATOCRIT 25.5 % (38.0-50.0); HEMOGLOBIN 8.8 gm/dL (13.0-16.0); MEAN CELL VOLUME 95.1 FL (83-96); MEAN CORPUSCULAR HEMOGLOBIN 32.8 PG (28-34); MEAN CORPUSCULAR HGB CONC 34.5 g/dL (30-36); MEAN PLATELET VOLUME 8.2 FL (6.5-11.5); RED BLOOD COUNT 2.68 X10e (3.90-5.60); RED CELL DISTRIBUTION WIDTH 14.4 % (11.0-15.5); WHITE BLOOD COUNT 6.5 X10e3 (4.0-10.5)
[2017-03-08 06:53] LABS: BUN/CREATININE RATIO 6.06; CALCIUM SERUM 8.5 mg/dL (8.4-10.2); CREATININE SERUM 3.3 mg/dL (0.6-1.4); GLOM FILT RATE Estimated 18.1 mL/min (>60); PHOSPHOROUS 3.5 mg/dL (2.5-4.6); POTASSIUM 3.6 mmol/L (3.5-5.1)
[2017-03-08 07:51] LABS: CALCIUM (PTHINTACT) 8.8 mg/dL (8.6-10.3)
== END 2017-03-09 18:40 | DRG 683 ==
LOC: CED 20:22 → CEDOF 23:48 → C3A PCU 23:48 → CEDOF 02-27 00:14 → CED 02-27 00:14 → C3A PCU 02-27 02:35 → CEDOF 02-27 02:35 → C3A PCU 03-09 11:55
PROVIDERS: Emergency Medicine; Hospitalist; Internal Medicine; Internal Medicine Nephrology; Surgery Vascular Surgery
PROC: 05HM33Z Insertion of Infusion Device into Right Internal Jugular Vein, Percutaneous Approach (ICD-10-PCS; 2017-03-04)
PROC: 5A1D60Z (ICD-10-PCS; principal; 2017-03-04 14:00)
DX: N17.9 Acute kidney failure, unspecified (principal); I12.0 Hypertensive chronic kidney disease with stage 5 chronic kidney disease or end stage renal disease; E87.0 Hyperosmolality and hypernatremia; F03.90 Unspecified dementia, unspecified severity, without behavioral disturbance, psychotic disturbance, mood disturbance, and anxiety; K21.9 Gastro-esophageal reflux disease without esophagitis; E11.21 Type 2 diabetes mellitus with diabetic nephropathy; Z91.040 Latex allergy status; M19.90 Unspecified osteoarthritis, unspecified site; E11.51 Type 2 diabetes mellitus with diabetic peripheral angiopathy without gangrene; I25.10 Atherosclerotic heart disease of native coronary artery without angina pectoris; G40.909 Epilepsy, unspecified, not intractable, without status epilepticus; E11.22 Type 2 diabetes mellitus with diabetic chronic kidney disease; N18.6 End stage renal disease; E78.5 Hyperlipidemia, unspecified; Z96.651 Presence of right artificial knee joint; D63.1 Anemia in chronic kidney disease; R80.9 Proteinuria, unspecified; Z86.73 Personal history of transient ischemic attack (TIA), and cerebral infarction without residual deficits; Z79.82 Long term (current) use of aspirin
CPT/HCPCS: 36415; 51702; 70450; 71010; 76000; 76770; 77001; 80048; 80053; 80076; 81003; 82310; 82550; 82553; 82570; 82575; 82728; 82947; 83540; 83550; 83735; 83970; 84100; 84132; 84156; 84300; 84484; 85025; 85027; 85610; 85730; 86706; 86803; 87040; 87340; 93005; 94760; 99285; C1750; J0360; J0690; J1642; J1644; J2250; J3010; Q4081